=== PATIENT | female | born 1960 | race African-American/Black ===

== ENCOUNTER 2017-02-09 16:48 | Emergency (ER) | payer OTHER ==
[~2017-02-09] VITALS: Ht 170.2 cm; Wt 95.7 kg
[~2017-02-09 16:48] MED LIST: ADVAIR 250-501 EACH INH; ALBUTEROL2.5 MG/3 M INH/SOL; MEDROL4 M2 PO; PROAIR HFA8.5 GM INH; XYZAL5 M1 PO
[2017-02-09 17:49] LABS: ABSOLUTE BASOPHIL COUNT 0 /CUMM (0.0-0.2); ABSOLUTE EOSINOPHIL COUNT 0.1 /CUMM (0.0-0.7); ABSOLUTE GRANULOCYTE CT 2.4 /CUMM (1.4-6.5); ABSOLUTE LYMPH COUNT 3.1 /CUMM (1.2-3.4); ABSOLUTE MONOCYTE COUNT 0.5 /CUMM (0.10-0.60); BASOPHIL % 0.6 % (0.0-2.0); EOSINOPHIL % 1.4 % (0-5); GRANULOCYTE % 39.6 % (42.2-75.2); HEMATOCRIT 39.2 % (37-47); MEAN CORPUSCULAR HGB 29.5 PG (27.0-31.0); MEAN CORPUSCULAR HGB CONC 33.6 G/DL (33.0-37.0); MEAN CORPUSCULAR VOLUME 87.8 FL (81.0-99.0); MEAN PLATELET VOLUME 9.5 FL (7.4-10.4); PLATELET COUNT 210 /CUMM (130-400); RBC DISTRIBUTION WIDTH 13.8 % (11.5-14.5); RED BLOOD CELL CT 4.47 /CUMM (4.20-5.40)
--- NOTE | 2017-02-09 18:49 | ED GENERAL ADULT ---
History of Present Illness General Chief Complaint: General Adult Stated Complaint: BP HIGH Source: patient Exam Limitations: no limitations Vital Signs & Intake/Output Vital Signs & Intake/Output Vital Signs Date Time Temp Pulse Resp B/P B/P Pulse O2 O2 Flow FiO2 Mean Ox Delivery Rate 02/09 2022 Room Air 02/09 1917 70 120/82 02/09 1655 97.9 64 15 169/100 98 Room Air Room Air Allergies Coded Allergies: Sulfa (Sulfonamide Antibiotics) (Severe, ANAPHYLAXIS 02/09/17) latex (HIVES 02/09/17) oxytocin (From PITOCIN) (ALLERGY TESTED POSITIVE 02/09/17) Reconcile Medications Azelastine/Fluticasone (Dymista Nasal [place]) 137 MCG-50 MCG/SPRAY SPRAY.PUMP 1 SPRAY NASB BID ALLERGIES (Reported) Chlorthalidone 25 MG TABLET 1 TAB PO DAILY BP (Reported) Fluticasone/Vilanterol (Breo Ellipta 100-25 Mcg INH) (Unknown Strength) BLST.W.DEV (Unknown Dose) INH BID ASTHMA (Reported) Levocetirizine Dihydrochloride 5 MG TABLET 1 TAB PO QPM ALLERGIES (Reported) Lorcaserin HCl (Belviq) (Unknown Strength) TABLET (Unknown Dose) UNKNOWN ( Reported) Pantoprazole Sodium 40 MG TABLET.DR 1 TAB PO DAILY GI (Reported) Sumatriptan Succinate (Imitrex) 50 MG TABLET 1 TAB PO AD PRN MIGRAINE DO NOT TAKE MORE THAN TWO TABLETS IN 24 HOURS Triage Note: PT TO ED FOR C/C OF HIGH BLOOD PRESSURE. PT TOOK PRESSURE AT [facility] WHICH SHE STATES WAS "180/125". PT REPORTS FEELING WEAK AND "LIKE I'M GOING TO PASS OUT." PT'S BP INTRIAGE 169/100. PT REPORTS "THE RIGHT SIDE OF MY HEAD JUST DOESN'T FEEL RIGHT FOR LAST TWO OR THREE HOURS." DENIES CP, SOB, CHANGE IN VISION. Triage Nurses Notes Reviewed? 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 Headache that began today Patient went to her pharmacy and had a blood pressure cuff reading of 200/125 in which patient was strongly advised to present to emergency room. Patient denies any fever chills blurred vision neck pain chest pain shortness of breath cough nausea vomiting paresthesia Patient states that she does have a history of migraines denies any acute onset or thunderclap headache or worst headache of life. (KETTY DIMAS) Past History Travel History Traveled to [place] past 21 day No Medical History Any Pertinent Medical History? 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 No (KETTY DIMAS) Review of Systems Review of Systems Constitutional: Reports: see HPI, malaise, weakness. EENTM: Reports: no symptoms. Respiratory: Reports: no symptoms. Cardiovascular: Reports: no symptoms. GI: Reports: no symptoms. Genitourinary: Reports: no symptoms. Musculoskeletal: Reports: no symptoms. Skin: Reports: no symptoms. Neurological/Psychological: Reports: see HPI, headache. Hematologic/Endocrine: Reports: no symptoms. Immunologic/Allergic: Reports: no symptoms. All Other Systems: Reviewed and Negative (KETTY DIMAS) Physical Exam Physical Exam General Appearance: no apparent distress, alert, comfortable Comments: Well-developed well-nourished person in no acute distress HEENT: Normal EENT exam, extraocular motion intact, no nystagmus. Pupils equally round and reactive to light and accommodation. Nose is atraumatic. External auditory canal and Tympanic membranes clear. Pharynx normal. No swelling or edema. Neck: Supple, no lymphadenopathy, normal range of motion without pain or tenderness Back: Nontender, no CVA tenderness Cardiovascular: Regular rate and rhythms no murmurs rubs or gallops, normal JVP Respiratory: Chest nontender. No respiratory distress.breath sounds clear to auscultation bilaterally Abdomen: Soft, nontender nondistended, no appreciable organomegaly. Normal bowel sounds. No ascites Extremity: No edema, no calf tenderness to palpation, normal and equal pulses. Neuro: Alert oriented x3, motor sensory normal, cranial nerves II through XII grossly intact. Skin: No appreciable rash on exposed skin, skin is warm and dry. Psych: Mood and affect is normal, memory and judgment is normal. Core Measures ACS in differential dx? No CVA/TIA Diagnosis: No Severe Sepsis Present: No Septic Shock Present: No (JENNIFER PETER,KETTY) Progress Differential Diagnoses I considered the following diagnoses in my evaluation of the patient: [ Hypertensive emergency, hypertension, hypertensive urgency, CVA, TIA, subarachnoid hemorrhage, myocardial infarction, end organ failure,] Plan of Care: Orders Procedure Date/time Status Add-on Test (ER Only) 02/09 185 Active THYROID STIMULATING HORMONE 02/09 171 Complete FREE T4 02/09 171 Complete TROPONIN LEVEL 02/09 165 Complete COMPREHENSIVE METABOLIC PANEL 02/09 165 Complete CBC WITHOUT DIFFERENTIAL 02/09 1658 Complete EKG 02/09 1658 Active Laboratory Tests 02/09/17 1715: Anion Gap 11, Estimated GFR > 60, BUN/Creatinine Ratio 18.8, Glucose 85, Calcium 9.1, Total Bilirubin 0.5, AST 74 H, ALT 61 H, Alkaline Phosphatase 102, Troponin I < 0.01, Total Protein 8.3 H, Albumin 4.8, Globulin 3.5, Albumin/ Globulin Ratio 1.4, TSH 0.041 L, Free T4 1.43, CBC w Diff NO MAN DIFF REQ, RBC 4.47, MCV 87.8, MCH 29.5, RDW 13.8, MPV 9.5, Gran % 39.6 L, Lymphocytes % 50.9, Monocytes % 7.5, Eosinophils % 1.4, Basophils % 0.6, Absolute Granulocytes 2.4, Absolute Lymphocytes 3.1, Absolute Monocytes 0.5, Absolute Eosinophils 0.1, Absolute Basophils 0, PUBS MCHC 33.6 Patient currently is in no apparent distress resting comfortably at bedside. EKG was unremarkable Blood work was noted to be normotensive with manual exam Patient does state that she has a history of migraines which has improved with Imitrex in the past. After medications were administered patient had relief of headache. Patient had unremarkable blood work patient was given copies of blood work for follow-up. (KETTY DIMAS) Initial ED EKG: normal intervals, normal p-waves, normal QRS complex, 55 BPM, LVH (KETTY DIMAS) Departure Departure Disposition: HOME OR SELF CARE Condition: Stable Clinical Impression Primary Impression: Hypertension Secondary Impressions: Headache, Malaise Referrals: SHOLA MCCANN,HUMAIRA Leyva (PCP/Family) Additional Instructions: As discussed continue home medications as directed Follow-up with your primary care doctor this week if no better. Begin the prescription of Imitrex for headaches. If symptoms worsen return to emergency room. Departure Forms: Customer Survey General Discharge Information Prescriptions: Current Visit Scripts Sumatriptan Succinate (Imitrex) 1 TAB PO AD PRN MIGRAINE #9 TAB DO NOT TAKE MORE THAN TWO TABLETS IN 24 HOURS (KETTY DIMSA) PA/CAR MECHANIC Co-Sign Statement Statement: ED Attending supervision documentation- [] I saw and evaluated the patient. I have also reviewed all the pertinent lab results and diagnostic results. I agree with the findings and the plan of care as documented in the PA's/CAR MECHANIC's documentation. [X] I have reviewed the ED Record and agree with the PA's/CAR MECHANIC's documentation. [] Additions or exceptions (if any) to the PAs/CAR MECHANIC's note and plan are summarized below: [] (LESLI MCCANN,SAMUEL Day) Critical Care Note Critical Care Note Critical Care Time: non-applicable (KETTY DIMAS)
[2017-02-09 19:17] VITALS: BP 120/82
[2017-02-09] MEDS ORDERED: IMITREX50 M1 PO (19:46)
[2017-02-09] MEDS ORDERED: DYMISTA NASAL S23 GM NASB (19:56)
[2017-02-09] MEDS ORDERED: BREO ELLIPTA 11 EACH INH (19:56)
[2017-02-09] MEDS ORDERED: CHLORTHALIDONE25 M1 PO (19:56)
[2017-02-09] MEDS ORDERED: PANTOPRAZOLE SO40 M1 PO (19:57)
[2017-02-09] MEDS ORDERED: BELVIQ10 M1 (19:57)
[2017-02-09] MEDS ORDERED: LEVOCETIRIZINE D5 M1 PO (19:57)
== END 2017-02-09 20:23 ==
LOC: ERH 16:48
PROVIDERS: Emergency Medicine
DX: I10 Essential (primary) hypertension (principal); R51 Headache; R53.81 Other malaise
CPT/HCPCS: 93005; 93010

== ENCOUNTER 2018-02-23 00:49 | Inpatient (IN) | payer OTHER ==
[~2018-02-23] VITALS: Ht 171.4 cm; Wt 97.5 kg
[~2018-02-23 00:49] MED LIST changes: +BELVIQ10 M1; +BREO ELLIPTA 11 EACH INH; +CHLORTHALIDONE25 M1 PO; +CYCLOBENZAPRINE10 M1 PO; +DYMISTA NASAL S23 GM NASB; +IBUPROFEN600 M1 PO; +IMITREX50 M1 PO; +LEVOCETIRIZINE D5 M1 PO; +NORCO 5-325 TA1 EACH PO; +PANTOPRAZOLE SO40 M1 PO
[2018-02-23] MEDS ORDERED: ZIPSOR25 M1 PO (08:49)
--- NOTE | 2018-02-23 12:32 | Operative Report ---
Operative/Inv Procedure Report Surgery Date: 02/23/18 Name of Procedure: Left total knee arthroplasty Pre-Operative Diagnosis: Left knee osteoarthritis Post-Operative Diagnosis: Same Estimated Blood Loss: scant Surgeon/Vascular Tech: Ramin MCCANN,Ash Garcia Anesthesia: block Implants: Jason triathlon total knee system-size 4 femur, size 4 tibia, 9 mm cruciate retaining polyethylene, 31 patella Drains: None Specimens: Femoral, tibial, patellar bone remnants of medial and lateral meniscal tissues Microbiology: Urine Tourniquet: 53 minutes Complications: None Condition: Stable Operative Indication: Patient is a 57-year-old woman who injured her back and left leg/knee who was treated for these injuries with conservative measures. Unfortunately, she had ongoing left knee symptoms that warranted further workup. She was found to have end-stage osteoarthritis of the lateral compartment and patellofemoral compartment. Due to poor response to conservative measures, patient wished to proceed with total knee arthroplasty. Risks, benefits and expectations of the surgical procedure were discussed which included but were not limited to persistent knee pain, need for subsequent surgery, infection, DVT, injury to blood vessel or nerve, anesthesia risks. Patient wished to proceed with the total knee arthroplasty after discussion Operative/Procedure Note Note: Patient was brought to the operating room and transferred to the operating room table. Once under appropriate anesthesia the left lower extremity was prepped and draped in standard fashion. Preoperative IV antibiotics were given prophylactically. Standard anterior incision was made after the leg was elevated exsanguinated and tourniquet was inflated to 300 ohms of pressure. Incision was taken down sharply to the underlying retinaculum. A medial retinacular approach was used to enter the knee joint. Of note the retinacular layer was very thin below the level of the patella. Large osteophytes were evaluated and seen in the patellofemoral compartment as well as the lateral joint and intercondylar notch. These osteophytes were excised. Remnants of the anterior horns of the medial lateral meniscal tissues were excised. A portion of the fat pad was excised. Retractors were placed. I then used the drill to enter the intramedullary canal for the intramedullary guide for the distal femoral cut. This cut was made at 5. Soft tissues were protected throughout the procedure during all clots. The femur was then sized to a size 4. Patient had a very large trochlear ridge. Cuts were made with the size 4 cutting block. I was satisfied with the preparation of the femur. I then used the external tibial alignment guide to pin the cutting block in a neutral position from medial to lateral and reproducing patient's posterior slope based on preoperative templating and intraoperative findings. Once this cut was made I sized the tibia to a size 4. I did a trial reduction with a size 4 tibia size 4 femur and a trial polyethylene. Full extension of the knee. Excellent balance knee in mid flexion and full flexion to gravity. I then evaluated the patella. There was severe eburnated bone along the patellofemoral compartment and specifically ridging of the patella consistent with eburnated bone and chronic maltracking. The patella was measured and the appropriate thickness was removed and resurfaced with a 31 patella. Excellent patellofemoral tracking at that point. No need for lateral release. I marked my rotation of the tibia and drilled my 3 lug holes for the femur. All trial components were then removed. I then finished preparation of the tibia with the appropriate sized tibial punch. Copious irrigation the knee surfaces followed as the cement was being mixed on the back table. Once the cement was ready was applied to the dry clean bony surfaces of the tibia. The size 4 tibial component was impacted in place and excess cement was removed with curette. Cement was applied to dry clean bony surfaces of the distal femur and the size 4 femoral component was impacted in place and excess cement was removed with curette. A 9 mm insert was applied as a trial insert and the knee was taken out to full extension. Cement was applied to the dry clean bony surface of the patella. The size 31 patella was impacted in place and excess cement was removed with a knife. During the cement hardening process I did appear articular pericapsular injection of a cocktail which include ropivacaine with epinephrine and Toradol for postoperative pain and inflammation management. Once the cement hardened into the knee through range of motion. Small pieces of excess cement were removed with osteotome. I removed the trial polyethylene and copiously irrigated the tibial tray. I made sure there was no remaining soft tissue, bone fragments or cement fragments within the tibial tray and then I impacted the definitive size 9 mm cruciate retaining polyethylene component. The locking mechanism was confirmed. Irrigation of the knee followed. Tourniquet was deflated at 53 minutes. Excellent patellofemoral tracking full extension no evidence of instability in mid flexion. Full flexion to gravity. After copious irrigation was completed I start the closed with interrupted #1 Vicryl sutures in the retinacular layer and the minimal extension to the quadricep. Subcutaneous tissue was closed in 2 layers with 2-0 Vicryl and skin was closed with a running 3-0 Vicryl suture with the knee in flexion. Every level of closure was followed by copious irrigation. Appropriate dressings were applied and patient was taken to the recovery room in good condition. No intraoperative complications. Discharge Disposition: PACU
--- NOTE | 2018-02-23 14:22 | Admission Core Measures ---
Acute Coronary Syndrome (CM) ACS Core Measures Acute Coronary Syndrome Diagnosis No Congestive Heart Failure (NEW) CHF Core Measures Congestive Heart Failure Diagnosis No Cerebrovascular Accident (NEW) CVA Core Measures CVA/TIA Diagnosis No Venous Thromboembolism VTE Core Ozzy (View Protocol) VTE Risk Factors Surgery No Mechanical VTE Prophylaxis d/t N/A MechProphylax Ordered No VTE Pharm Prophylaxis d/t NA PharmProphylax ordered Problem List As ranked by this Provider includes Assessment & Plan 1. Unilateral primary osteoarthritis, left knee HOME MEDS Home Med List Azelastine/Fluticasone (Dymista Nasal [place]) 137 MCG-50 MCG/SPRAY SPRAY.PUMP 1 SPRAY NASB BID ALLERGIES (Reported) Chlorthalidone 25 MG TABLET 1 TAB PO DAILY BP (Reported) Diclofenac Potassium (Zipsor) 25 MG CAPSULE 1 TAB PO DAILY PRN muscle relaxer (Reported) Fluticasone/Vilanterol (Breo Ellipta 100-25 Mcg INH) (Unknown Strength) BLST.W.DEV (Unknown Dose) INH BID ASTHMA (Reported) Ibuprofen 600 MG TABLET 1 TAB PO Q6 PRN PAIN Levocetirizine Dihydrochloride 5 MG TABLET 1 TAB PO QPM ALLERGIES (Reported) Pantoprazole Sodium 40 MG TABLET.DR 1 TAB PO DAILY GI (Reported) Sumatriptan Succinate (Imitrex) 50 MG TABLET 1 TAB PO AD PRN MIGRAINE
--- NOTE | 2018-02-23 14:26 | Patient Discharge Instructions ---
Discharge Instructions General Discharge Information You were seen/treated for: Left knee pain related to unilateral primary osteoarthritis You had these procedures: Left total knee replacement Watch for these problems: Increasing pain despite the use of pain medication Increasing redness, warmth or swelling Drainage of any type from incision Inability to bear weight on operative leg Persistent nausea and vomiting Fever greater than 101.5 degrees Do not soak the wound: Yes No bath, but you may shower: Yes Other wound care: Please keep wound clean and dry. No ointments or lotions of any type on or near incision at any time. No exceptions. Your dressing will be changed by your nurse on the second day after your surgery. Daily dry dressing changes are recommended each day thereafter. Do not soak your wound in a bath at any time until otherwise indicated by your surgeon. You may shower, please dry wound immediately after shower with a clean towel. Diet Continue normal diet: Yes Recommended Diet: Regular Activity Full Activity/No Limits: No Activity Self Limited: Yes Pounds, do NOT lift more than: 10 Acute Coronary Syndrome Inclusion Criteria At DC or during hospital stay patient has or had the following: ACS DIAGNOSIS No Discharge Core Measures Meds if any: Prescribed or Continued at Discharge Meds if any: NOT Prescribed or Continued at Discharge Congestive Heart Failure Inclusion Criteria At DC or during hospital stay patient has or had the following: CHF DIAGNOSIS No Discharge Core Measures Meds if any: Prescribed or Continued at Discharge Meds if any: NOT Prescribed or Continued at Discharge Cerebrovascular accident Inclusion Criteria At DC or during hospital stay patient has or had the following: CVA/TIA Diagnosis No Discharge Core Measures Meds if any: Prescribed or Continued at Discharge Meds if any: NOT Prescribed or Continued at Discharge Venous thromboembolism Inclusion Criteria VTE Diagnosis No VTE Type NONE VTE Confirmed by (Test) NONE Discharge Core Measures - Per Current guidelines, there needs to be overlap - treatment for the first 5 days of Warfarin therapy. - If discharged on Warfarin prior to 5 days of - overlap therapy, the patient will need to be - assessed for post discharge needs including - *Post discharge parental anticoagulation - *Warfarin and/or parental anticoagulation education - *Follow up date to check INR post discharge At least 5 days overlap therapy as Inpatient No Meds if any: Prescribed or Continued at Discharge Note: Overlap Therapy is Warfarin and Anticoagulant Meds if any: NOT Prescribed or Continued at Discharge
--- NOTE | 2018-02-23 14:28 | Surgical Discharge Summary ---
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 Lithuanian Review of Systems: See H&P Hospital Course Course Attending Physician: Ramin MCCANN,Jose Primary Care Physician: Danitza Mahoney MD Hospital Course: Patient was admitted to the hospital for an elective total joint replacement. The procedure was tolerated well and patient was transferred to a general surgical floor. Diet was advanced and tolerated. The patient was evaluated and treated by physical therapy. At the time of hospital discharge, the vital signs were stable, neurovascular status was intact, and pain was controlled with the use of oral pain medications. Allergies: Coded Allergies: perfume (Severe, anaphylaxis 02/23/18) Sulfa (Sulfonamide Antibiotics) (Intermediate, rash 02/23/18) latex (HIVES 02/12/18) oxytocin (From PITOCIN) (ALLERGY TESTED POSITIVE 02/12/18) Significant Procedures: left total knee arthroplasty Disposition Summary Disposition Principal Diagnosis: Left knee unilateral primary osteoarthritis Additional Diagnosis: None Discharge Disposition: SNF Discharge Instructions General Discharge Information Code Status: Full Code Patient's Diet: Regular, advance as tolerated Patient's Activity: WBAT Follow-Up Instructions/Appts: Follow up with Dr. Faustin in 2 weeks from date of surgery. Please call office to arrange/confirm this appointment. Medications at Discharge Discharge Medications: Continue taking these medications: Sumatriptan Succinate (Imitrex) 50 MG TABLET 1 Tablet ORAL As Directed as needed for MIGRAINE Qty = 9 Instructions: DO NOT TAKE MORE THAN TWO TABLETS IN 24 HOURS Chlorthalidone (Chlorthalidone) 25 MG TABLET 1 Tablet ORAL DAILY Qty = 30 Fluticasone/Vilanterol (Breo Ellipta 100-25 Mcg INH) (Unknown Strength) BLST.W.DEV Unknown Dose Inhale through mouth TWICE DAILY Azelastine/Fluticasone (Dymista Nasal [place]) 137 MCG-50 MCG/SPRAY SPRAY.PUMP 1 [place] Both sides of nose TWICE DAILY Levocetirizine Dihydrochloride (Levocetirizine Dihydrochloride) 5 MG TABLET 1 Tablet ORAL Every night Qty = 30 Pantoprazole Sodium (Pantoprazole Sodium) 40 MG TABLET.DR 1 Tablet ORAL DAILY Qty = 30 Start taking the following new medications: Hydromorphone HCl (Hydromorphone HCl) 2 MG TABLET 1-2 Tablet ORAL EVERY 3 HOURS NEEDED as needed for PAIN SCALE 4-6 ( MODERATE) Qty = 30 No Refills Docusate Sodium (Docusate Sodium) 100 MG CAPSULE 1 Tablet ORAL TWICE DAILY as needed for CONSTIPATION Qty = 30 No Refills Polyethylene Glycol 3350 (Miralax) 17 GRAM/DOSE POWDER 1 Tablet ORAL DAILY NEEDED as needed for NO BM IN TWO DAYS Qty = 30 No Refills Methocarbamol (Robaxin) 500 MG TABLET 1 Tablet ORAL THREE TIMES A DAY NEEDED as needed for SPASMS Qty = 30 No Refills Apixaban (Eliquis) 2.5 MG TABLET 1 Tablet ORAL TWICE DAILY Qty = 30 No Refills
--- NOTE | 2018-02-23 15:08 | PN- Orthopedic ---
Subjective Subjective: Awake and alert in pacu complaining of feeling short of breath due to severe sensitivities surrounding smells and recent exposure to perfume in the PACU. Her resp rate is 18 with O2 sat of 99% on 2LNC, no audible wheezing Objective Vital Signs and I&Os VSS< afebrile General: appears distressed due to perfume exposure and feels short of breath although RR 16 with O2 sat of 99% on 2LNC BP 124/63, HR 78 reg Chest: clear anteriorly bilaterally, RRR Abd: soft, good bs Ext: warm, no edema, normosensate, good 5/5 ANASTACIO BLE wd: dressed, dry, ice pack in place Assessment/Plan Assessment/Plan 57yo female s/p L TKR pain management with ccelebrex daily while in hospital/narcotics as needed PT - WBAT dvt ppx with eliquis/alps pt is undergoing a breathing treatment now and is more calm. O2 sat continues to be 99%- will ordere TRC, Reviewed home meds with pharmacy and restarted all respiratory/asthma/allergy meds with formulary conversions Core Measures Venous Thromboembolism VTE Risk Factors Surgery No Mechanical VTE Prophylaxis d/t N/A MechProphylax Ordered No VTE Pharm Prophylaxis d/t NA PharmProphylax ordered
[2018-02-23 15:47] VITALS: BP 131/91
[2018-02-23 18:09] VITALS: BP 145/85
[2018-02-23 20:00] VITALS: BP 112/73
[2018-02-23 20:15] VITALS: BP 112/73
[2018-02-23 22:00] VITALS: BP 120/77
[2018-02-24 01:43] VITALS: BP 117/60
[2018-02-24 06:19] VITALS: BP 110/60
[2018-02-24 08:30] LABS: ABSOLUTE BASOPHIL COUNT 0 /CUMM (0.0-0.2); ABSOLUTE EOSINOPHIL COUNT 0 /CUMM (0.0-0.7); ABSOLUTE LYMPH COUNT 1.7 /CUMM (1.2-3.4); ABSOLUTE MONOCYTE COUNT 0.9 /CUMM (0.10-0.60); BASOPHIL % 0.1 % (0.0-2.0); EOSINOPHIL % 0.1 % (0-5); HEMATOCRIT 28.7 % (37-47); MEAN CORPUSCULAR HGB 30.4 PG (27.0-31.0); MEAN CORPUSCULAR HGB CONC 34.2 G/DL (33.0-37.0); MEAN CORPUSCULAR VOLUME 88.8 FL (81.0-99.0); PLATELET COUNT 191 /CUMM (130-400); RBC DISTRIBUTION WIDTH 14.3 % (11.5-14.5); RED BLOOD CELL CT 3.23 /CUMM (4.20-5.40); WHITE BLOOD CELL COUNT 10.6 /CUMM (4.8-10.8)
[2018-02-24 08:40] LABS: GRANULOCYTE % 75.3 % (42.2-75.2)
[2018-02-24 10:35] VITALS: BP 120/68
--- NOTE | 2018-02-24 11:41 | PN- Orthopedic ---
See Addendum Subjective Subjective: No acute overnight events. Denies chest pain, no asthma related shortness of breath overnight. Denies nausea and vomitting. Has alicea catheter. Anticipates dc to str in 2 nights. Objective Vital Signs and I&Os Vital Signs Date Time Temp Pulse Resp B/P B/P Pulse O2 O2 Flow FiO2 Mean Ox Delivery Rate 02/24 1035 95.7 67 22 120/68 97 Room Air / 0906 Room Air Room Air 02/24 0619 98.4 60 22 110/60 95 Room Air 06/05 0143 98.0 62 22 117/60 98 Room Air / 2200 98.3 66 20 120/77 95 /04 2105 Room Air /2014 98.4 65 20 112/73 97 / 2000 98.4 65 20 112/73 97 Room Air / 1809 98.3 75 20 145/85 95 /04 1547 97.7 64 20 131/91 97 Room Air Intake & Output 02/24 1600 02/24 0800 / 0000 /04 1600 / 0800 / 0000 Intake Total 360 840 Output Total 600 925 Balance 360 -600 -85 Intake, IV 600 Intake, Oral 360 240 Output, Urine 600 925 Patient 215 lb Weight Weight Reported by Patient Measurement Method Physical Exam: General: Alert and oriented x3, no acute distress Cardiac: RRR, s1s2 Pulm: Non-labored respiratory effort, no wheezing, cta bilaterally Abd: Non-tender, non-distended Extremities: Moves all extremities, distal sensation inact. Skin warm and well perfused. Bilateral calves soft and non-tender. Dressing dry and intact. Assessment/Plan Assessment/Plan 57 year old female, pod 1, s/p L TKR -DC alicea -DC iv fluids oob, pt wbat eliquis for dvt ppx dc celebrex due to sulfa allergy will discuss with Dr. Faustin Core Measures Venous Thromboembolism VTE Risk Factors Surgery No Mechanical VTE Prophylaxis d/t N/A MechProphylax Ordered No VTE Pharm Prophylaxis d/t NA PharmProphylax ordered
[2018-02-24 13:42] VITALS: BP 107/65
[2018-02-24 18:00] VITALS: BP 120/68
[2018-02-24 22:00] VITALS: BP 124/70
[2018-02-25 05:45] VITALS: BP 114/64
--- NOTE | 2018-02-25 07:27 | PN- Orthopedic ---
Subjective Subjective: Co a lot of pain, worse overnight. improved with meds. better this am. no other complaints, no fever, no cp, no sob. Objective Vital Signs and I&Os Vital Signs Date Time Temp Pulse Resp B/P B/P Pulse O2 O2 Flow FiO2 Mean Ox Delivery Rate 02/25 0545 98.3 78 24 114/64 98 Room Air / 2200 98.3 74 20 124/70 93 Room Air / 1800 98.1 74 20 120/68 94 Room Air / 1628 Room Air Room Air / 1342 97.9 59 20 107/65 97 Room Air / 1035 95.7 67 22 120/68 97 Room Air / 0906 Room Air Room Air 02/24 0800 Room Air Intake & Output 02/25 0800 / 0000 02/24 1600 02/24 0800 / 0000 /04 1600 Intake Total 100 300 840 840 840 Output Total 400 400 600 925 Balance -300 300 440 240 -85 Intake, IV 50 600 600 Intake, Oral 100 250 840 240 240 Output, Urine 400 400 600 925 Patient 215 lb Weight Weight Reported by Patient Measurement Method Physical Exam: wdwn aox3, nad, appears comfortable. heent-wnl no respiratory distress. LLE- dressing changed, mild bloody drainage noted inferior aspect of incision. scant amount of fresh blood noted in the area, steri strips have fallen off inferior incision. dsd applied. nvi distally, no calf pain. rom 0-45. Results Last 48 Hours of Labs: Laboratory Tests 02/24 0720 Chemistry Sodium (137 - 145 mmol/L) 140 Potassium (3.5 - 5.1 mmol/L) 3.9 Chloride (98 - 107 mmol/L) 102 Carbon Dioxide (22 - 30 mmol/L) 29 Anion Gap (5 - 16) 10 BUN (7 - 17 mg/dL) 21 H Creatinine (0.5 - 1.0 mg/dL) 0.8 Estimated GFR (>60 ml/min) > 60 BUN/Creatinine Ratio (7 - 25 %) 26.3 H Hematology CBC w Diff NO MAN DIFF REQ WBC (4.8 - 10.8 /CUMM) 10.6 RBC (4.20 - 5.40 /CUMM) 3.23 L Hgb (12.0 - 16.0 G/DL) 9.8 L Hct (37 - 47 %) 28.7 L MCV (81.0 - 99.0 FL) 88.8 MCH (27.0 - 31.0 PG) 30.4 MCHC (33.0 - 37.0 G/DL) 34.2 RDW (11.5 - 14.5 %) 14.3 Plt Count (130 - 400 /CUMM) 191 MPV (7.4 - 10.4 FL) 9.0 Gran % (42.2 - 75.2 %) 75.3 H Lymphocytes % (20.5 - 51.1 %) 16.2 L Monocytes % (1.7 - 9.3 %) 8.3 Eosinophils % (0 - 5 %) 0.1 Basophils % (0.0 - 2.0 %) 0.1 Absolute Granulocytes (1.4 - 6.5 /CUMM) 8.0 H Absolute Lymphocytes (1.2 - 3.4 /CUMM) 1.7 Absolute Monocytes (0.10 - 0.60 /CUMM) 0.9 H Absolute Eosinophils (0.0 - 0.7 /CUMM) 0 Absolute Basophils (0.0 - 0.2 /CUMM) 0 Assessment/Plan Assessment/Plan pod2 sp L TKA orthopedically stable. monitor wound bleeding cont eliquis dsd daily, done today cira pavon PT, wbat titrate pain meds, breakthrough toradol, robaxin for spasm dispo: pt request transfer to [facility], will dw case managment. plan for dc tomorrow. Core Measures Venous Thromboembolism VTE Risk Factors Surgery No Mechanical VTE Prophylaxis d/t N/A MechProphylax Ordered No VTE Pharm Prophylaxis d/t NA PharmProphylax ordered
--- NOTE | 2018-02-25 15:35 | RADIOLOGY REPORT ---
EXAMINATION: XR KNEE, LEFT CLINICAL INFORMATION: Status post left TKA. COMPARISON: Preoperative x-ray 04/06/2017. TECHNIQUE: AP and lateral views of the left knee were obtained.. FINDINGS: There are sequelae of a left total knee arthroplasty. The hardware appears in anatomic position end intact. No fractures are demonstrated. There are postoperative changes in the periarticular soft tissues. IMPRESSION: 1. Status post left total knee arthroplasty.
[2018-02-25 16:33] VITALS: BP 120/70
[2018-02-25 21:26] VITALS: BP 123/70
[2018-02-26 06:34] VITALS: BP 126/72
--- NOTE | 2018-02-26 10:48 | PN- Orthopedic ---
Subjective Subjective: POD#3 S/P LEFT TKA LEFT KNEE PAIN CONTROL ISSUES STATES ON TORADOL WORKS FOR HER PAIN DENIES CP, SOB, NO N+V WITH DIET HAS BEEN OOB WITH PT AND CLEARED FOR HOME D/C Objective Vital Signs and I&Os Vital Signs Date Time Temp Pulse Resp B/P B/P Pulse O2 O2 Flow FiO2 Mean Ox Delivery Rate 02/26 0634 98.1 84 18 126/72 100 Room Air 02/25 2126 98.8 87 20 123/70 99 /06 1633 98.7 83 20 120/70 97 Intake & Output / 1600 02/26 0800 02/26 0000 02/25 1600 02/25 0800 02/25 0000 Intake Total 0 480 360 100 300 Output Total 400 Balance 0 480 360 -300 300 Intake, IV 50 Intake, Oral 0 480 360 100 250 Number 0 1 Bowel Movements Output, Urine 400 Physical Exam: CV: RRR LUNGS: CLEAR ABD: SOFT, +BS EXT: CALVES SOFT, DISTAL CMS INTACT BILAT WOUND C/D/I Assessment/Plan Assessment/Plan ORTHO STABLE PLAN TITRATE PAIN MEDS CONT OOB WITH PT CASE MANAGEMENT TO SEE FOR HOME NEEDS Core Measures Venous Thromboembolism VTE Risk Factors Surgery No Mechanical VTE Prophylaxis d/t N/A MechProphylax Ordered No VTE Pharm Prophylaxis d/t NA PharmProphylax ordered
[2018-02-26] MEDS ORDERED: HYDROMORPHONE HC2 M1 PO (11:59)
[2018-02-26] MEDS ORDERED: DOCUSATE SODIU100 M3 PO (11:59)
[2018-02-26] MEDS ORDERED: MIRALAX119 GM PO (11:59)
[2018-02-26] MEDS ORDERED: ELIQUIS2.5 M1 PO (12:01)
[2018-02-26] MEDS ORDERED: ROBAXIN500 M1 PO (12:01)
[2018-02-26 12:24] VITALS: BP 126/72
== END 2018-02-26 13:15 | DRG 470 ==
LOC: STS 00:49 → EDSTATUS 07:00 → PACUH 12:54 → 2NA 13:12 → ENRESERV 13:57 → ENTRNSPT 14:33 → EDTRNSPT 14:47 → EDTRNSPTSTS 14:47 → EDTRNSPT 15:07 → 2NA 15:13 → CMPTRNSPT 15:31 → 2NA 02-24 08:36 → ENPENDDIS 02-26 12:20 → 2NA 02-26 13:15
PROVIDERS: Physician Assistant Surgical
PROC: 0SRD0J9 Replacement of Left Knee Joint with Synthetic Substitute, Cemented, Open Approach (ICD-10-PCS; principal; 2018-02-23)
PROC: 3E0T3BZ Introduction of Anesthetic Agent into Peripheral Nerves and Plexi, Percutaneous Approach (ICD-10-PCS; 2018-02-23)
DX: M17.12 Unilateral primary osteoarthritis, left knee (principal); J45.909 Unspecified asthma, uncomplicated; I10 Essential (primary) hypertension; F51.01 Primary insomnia; Z91.040 Latex allergy status; Z88.2 Allergy status to sulfonamides; Z91.048 Other nonmedicinal substance allergy status; Z88.8 Allergy status to other drugs, medicaments and biological substances
CPT/HCPCS: 2NAP; 6030; 36415; 36592; 73560-LT; 82436; 87086; 88305; 97110-GO; 97116-GO; 97116-GP; 97161-GP; 97530-GO; 97530-GP; C1713; C9290; G0378; J0171; J1100; J1885; J2405; J2795; J3370; J3490; J7040

== ENCOUNTER 2018-02-26 22:49 | Observation (INO) | payer OTHER ==
[~2018-02-26] VITALS: Ht 170.2 cm; Wt 103.5 kg
[~2018-02-26 22:49] MED LIST changes: +DOCUSATE SODIU100 M3 PO; +ELIQUIS2.5 M1 PO; +HYDROMORPHONE HC2 M1 PO; +MIRALAX119 GM PO; +ROBAXIN500 M1 PO; +ZIPSOR25 M1 PO
--- NOTE | 2018-02-26 23:09 | ED GENERAL ADULT ---
History of Present Illness General Chief Complaint: Lower Extremity Problems Stated Complaint: KNEE INFECTION Source: patient, old records Exam Limitations: no limitations Vital Signs & Intake/Output Vital Signs & Intake/Output Vital Signs Date Time Temp Pulse Resp B/P B/P Pulse O2 O2 Flow FiO2 Mean Ox Delivery Rate 02/27 0021 98.2 58 18 122/74 98 Room Air 02/26 2346 Room Air 02/26 2345 98.0 70 18 113/60 98 Room Air 02/26 2301 98.2 69 18 111/55 98 Room Air ED Intake and Output 02/27 0000 02/26 1200 Intake Total 100 Output Total Balance 100 Intake, IV 100 Allergies Coded Allergies: perfume (Severe, anaphylaxis 02/23/18) Sulfa (Sulfonamide Antibiotics) (Intermediate, rash 02/23/18) latex (HIVES 02/12/18) oxytocin (From PITOCIN) (ALLERGY TESTED POSITIVE 02/12/18) Reconcile Medications Apixaban (Eliquis) 2.5 MG TABLET 1 TAB PO BID BLOOD THINNER Azelastine/Fluticasone (Dymista Nasal [place]) 137 MCG-50 MCG/SPRAY SPRAY.PUMP 1 SPRAY NASB BID ALLERGIES (Reported) Chlorthalidone 25 MG TABLET 1 TAB PO DAILY BP (Reported) Docusate Sodium 100 MG CAPSULE 1 TAB PO BID PRN CONSTIPATION Fluticasone/Vilanterol (Breo Ellipta 100-25 Mcg INH) (Unknown Strength) BLST.W.DEV (Unknown Dose) INH BID ASTHMA (Reported) Hydromorphone HCl 2 MG TABLET 1-2 TAB PO Q3P PRN PAIN SCALE 4-6 (MODERATE) Levocetirizine Dihydrochloride 5 MG TABLET 1 TAB PO QPM ALLERGIES (Reported) Methocarbamol (Robaxin) 500 MG TABLET 1 TAB PO TIDPRN PRN SPASMS Pantoprazole Sodium 40 MG TABLET.DR 1 TAB PO DAILY GI (Reported) Polyethylene Glycol 3350 (Miralax) 17 GRAM/DOSE POWDER 1 TAB PO DAILY NEEDED PRN NO BM IN TWO DAYS Sumatriptan Succinate (Imitrex) 50 MG TABLET 1 TAB PO AD PRN MIGRAINE DO NOT TAKE MORE THAN TWO TABLETS IN 24 HOURS Triage Note: PT MARISA FROM [facility] FOR ADMISSION. PT HAD L KNEE REPLACEMENT DONE FRIDAY BY DR. SHERIFF. PT HAS BEEN IN [facility] FOR REHAB WHERE SHE HAS BEEN ABLE TO AMBULATE WITH WALKER. TODAY PT DEVELOPED REDNESS, SWELLING AND PAIN TO L KNEE. PT WENT TO [facility] AND WAS SENT BACK HERE TO [place]. PT C/O 07/01 PAIN. AFEBRILE. Triage Nurses Notes Reviewed? yes Onset: Morning Duration: hour(s):, constant, continues in ED Timing: recent history Severity: severe Modifying Factors: Improves With: immobilization, rest. Worsens With: movement. LMP (ages 10-50): post menopausal : No Patient currently breastfeeds: No HPI: Patient is status post left total knee replacement. ED admission she developed increased swelling redness low-grade temperature. She was seen at [facility] and referred for continuity of care with orthopedic surgery. She denies nausea vomiting diarrhea chest pain shortness breath headache dysuria bleeding. Past History Travel History Traveled to [facility] past 21 day No Medical History Any Pertinent Medical History? 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 No Review of Systems Review of Systems Constitutional: Reports: no symptoms. EENTM: Reports: no symptoms. Respiratory: Reports: no symptoms. Cardiovascular: Reports: no symptoms. GI: Reports: no symptoms. Genitourinary: Reports: no symptoms. Musculoskeletal: Reports: see HPI, joint pain, joint swelling. Skin: Reports: see HPI, rash. Neurological/Psychological: Reports: no symptoms. Hematologic/Endocrine: Reports: no symptoms. Immunologic/Allergic: Reports: no symptoms. All Other Systems: Reviewed and Negative Physical Exam Physical Exam General Appearance: well developed/nourished, alert, awake, anxious, moderate distress, obese Head: atraumatic, normal appearance Eyes: Bilateral: normal appearance, PERRL, EOMI. Ears, Nose, Throat: normal pharynx, normal ENT inspection, hearing grossly normal Neck: normal inspection, supple, full range of motion, no midline tenderness Respiratory: normal breath sounds, chest non-tender, no respiratory distress, quiet respiration, lungs clear Cardiovascular: regular rate/rhythm, normal peripheral pulses, norml femoral pulses equa Peripheral Pulses: 4+ carotid (R), 4+ carotid (L) Gastrointestinal: normal bowel sounds, soft, non-tender, no organomegaly Back: normal inspection, normal range of motion, no vertebral tenderness Extremities: normal capillary refill, limited range of motion, swelling, tenderness Neurologic/Psych: no motor/sensory deficits, awake, alert, oriented x 3, normal gait, normal mood/affect, 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 Skin: intact, rash, Erythema and warmth from left mid thigh to pretibial area Lymphatic: no anterior cervical rl Core Measures ACS in differential dx? No CVA/TIA Diagnosis: No Sepsis Present: No Sepsis Focused Exam Completed? No Progress Differential Diagnoses I considered the following diagnoses in my evaluation of the patient: Cellulitis postoperative complication Plan of Care: Orders Procedure Date/time Status Regular Diet 02/27 B Active C-REACTIVE PROTEIN 02/27 600 Active CBC WITHOUT DIFFERENTIAL 02/27 600 Active Pathway - chart 02/26 2349 Active Code Status 02/26 2349 Active Intake & Output 02/26 2314 Active Patient Data 02/[address] in observation 02/26 2253 Active TRC EVALUATION (GEN) 02/26 UNK Active Saline Lock 02/26 UNK Active Wound Care/Dressing 02/26 UNK Active VTE Mechanical Prophylaxis 02/26 UNK Active Vital Signs 02/26 UNK Active Activity/Ambulation 02/26 UNK Active Current Medications Sig/Mona Start time Last Medication Dose Stop Time Status Admin Apixaban 2.5 MG BID 02/27 900 AC (Eliquis) Budesonide/ 2 PUF BID 02/27 900 AC Formoterol Fumarate (SYMBICORT) Chlorthalidone 25 MG DAILY 02/27 900 AC (Hygroton) Omeprazole 40 MG DAILY AC 02/27 700 AC (Prilosec) Acetaminophen 650 MG Q6P PRN 02/26 2345 AC (Tylenol) Diphenhydramine HCl 25 MG Q4P PRN 02/26 2345 AC (Benadryl) Docusate Sodium 100 MG BID PRN 02/26 2345 AC (Colace) Hydromorphone HCl 2 MG Q3P PRN 02/26 2345 AC (Dilaudid) Hydromorphone HCl 2 MG Q3P PRN 02/26 2345 AC (Dilaudid) Methocarbamol 500 MG TIDPRN PRN 02/26 2345 AC (Robaxin) Morphine Sulfate 4 MG Q2P PRN 02/26 2345 AC (MORPHINE SULFATE) Ondansetron HCl 4 MG Q6P PRN 02/26 2345 AC (Zofran) Initial ED EKG: none Comments: Ortho defers use of antibioitics at this time. Departure Departure Time of Disposition: 2308 Disposition: STILL A PATIENT Condition: Stable Clinical Impression Primary Impression: Post-op pain Secondary Impressions: Cellulitis, Post-operative complication Referrals: Maru MCCANN,Danitza Leyva (PCP/Family) Departure Forms: Customer Survey General Discharge Information Observation Note Spoke With: Nishant MCCANN,[place] Day Physician Advisor Notified: LAUREN CAMPBELL DO Place Patient In: Non-ED OBS Care Area Rationale for Observation: My rational for observation is as follows serial lab exam medication adjustment IV analgesia physical therapy orthopedics management continuing care discharge planning. Critical Care Note Critical Care Note Critical Care Time: non-applicable ED Attending Observation Initial Observation Note: I have seen and personally examined JOSUÉ HEATON on 02/27/18 at 0023. I agree with the current emergency department documentation. The disposition (admission or discharge) is uncertain at this time, she needs a period of observation for the following reason(s): The ED Nurse caring for this patient has been personally informed as to what the patient is being observed for.
--- NOTE | 2018-02-26 23:11 | History & Physical Pre-Op ---
General Information and HPI MD Statement: I have seen and personally examined JOSUÉ HEATON and documented this H&P. The patient is a 57 year old F who presented with a patient stated chief complaint of [L knee erythema]. Source of Information: patient, old records Exam Limitations: no limitations History of Present Illness: This is a 57-year-old female 3 days status post left total knee arthroplasty secondary to primary left knee osteoarthritis, performed by Dr. Faustin which went without complications. She was discharged to a skilled nurse facility earlier today and then transferred to [place] emergency room due to concerns of erythema about her wound. At the request of the on-call orthopedic surgeon Dr. Dillard, the patient was transferred to our facility for reevaluation so she could be under the care of her orthopedic surgeons. She is currently on Eliquis and had mild bleeding postoperatively at the inferior aspect of her wound, likely secondary to Eliquis. Other than this, her postoperative course was uneventful, she had no fever or flulike illness and she progressed as expected being discharged on postop day #3. Patient states that when she got to her nursing facility, her leg suddenly became more painful, she felt as though she "had a fever in her leg", it was hot to touch and red at the medial proximal thigh region extending down to the knee. She felt as though she may have a fever as well. She was transferred to the [facility] emergency department and was evaluated by the emergency room staff there. They sent her records with her to our facility. I have reviewed them. Her T-max was 100.2, lactic acid was 1.2, white blood cell count 8.7, hemoglobin 9.7, hematocrit 29.9, platelets 198, 67% neutrophil count, CRP of 17, urinalysis was negative, blood cultures 2 were obtained and results are pending , ultrasound of the left lower extremity was performed and no DVT was noted. Allergies/Medications Allergies: Coded Allergies: perfume (Severe, anaphylaxis 02/23/18) Sulfa (Sulfonamide Antibiotics) (Intermediate, rash 02/23/18) latex (HIVES 02/12/18) oxytocin (From PITOCIN) (ALLERGY TESTED POSITIVE 02/12/18) Home Med list Apixaban (Eliquis) 2.5 MG TABLET 1 TAB PO BID BLOOD THINNER Azelastine/Fluticasone (Dymista Nasal [place]) 137 MCG-50 MCG/SPRAY SPRAY.PUMP 1 SPRAY NASB BID ALLERGIES (Reported) Chlorthalidone 25 MG TABLET 1 TAB PO DAILY BP (Reported) Docusate Sodium 100 MG CAPSULE 1 TAB PO BID PRN CONSTIPATION Fluticasone/Vilanterol (Breo Ellipta 100-25 Mcg INH) (Unknown Strength) BLST.W.DEV (Unknown Dose) INH BID ASTHMA (Reported) Hydromorphone HCl 2 MG TABLET 1-2 TAB PO Q3P PRN PAIN SCALE 4-6 (MODERATE) Levocetirizine Dihydrochloride 5 MG TABLET 1 TAB PO QPM ALLERGIES (Reported) Methocarbamol (Robaxin) 500 MG TABLET 1 TAB PO TIDPRN PRN SPASMS Pantoprazole Sodium 40 MG TABLET.DR 1 TAB PO DAILY GI (Reported) Polyethylene Glycol 3350 (Miralax) 17 GRAM/DOSE POWDER 1 TAB PO DAILY NEEDED PRN NO BM IN TWO DAYS Sumatriptan Succinate (Imitrex) 50 MG TABLET 1 TAB PO AD PRN MIGRAINE DO NOT TAKE MORE THAN TWO TABLETS IN 24 HOURS Past History Medical History Neurological: NONE EENT: allergies Cardiovascular: hypertension, hyperlipidemia Respiratory: asthma Gastrointestinal: NONE Hepatic: NONE Renal: NONE Musculoskeletal: NONE Psychiatric: NONE Endocrine: NONE Blood Disorders: NONE Cancer(s): NONE 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 Review of Systems Review of Systems: Review of systems: See HPI, all other systems negative. Constitutional: See HPI HEENT: No visual changes no sore throat no congestion Cardiovascular: No chest pain ,palpitation , orthopnea or ankle swelling Skin: No jaundice no rashes Respiratory: No dyspnea cough sputum or hemoptysis GI: No nausea no vomiting : No dysuria no hematuria Musclulo skeletal: Left knee pain, see HPI Neurologic: No numbness no confusion Psych: No stress anxiety or depression,. Heme/endocrine: No bruising no bleeding no polyuria or polydipsia Immunology: No splenectomy or history of AIDS Exam & Diagnostic Data Last 24 Hrs of Vital Signs/I&O Vital Signs Date Time Temp Pulse Resp B/P B/P Pulse O2 O2 Flow FiO2 Mean Ox Delivery Rate 02/26 2301 98.2 69 18 111/55 98 Room Air Physical Exam: Well-developed well-nourished no apparent distress. HEENT: Atraumatic, extraocular motion intact Neck: Supple, no lymphadenopathy Respiratory: No respiratory distress Extremities: No edema LEFT lower extremity dressing in place, Incision line is clean dry and intact with minimal bloody drainage inferior aspect of the incision. There is moderate swelling of the entire left lower extremity when compared bilaterally. There is significant warmth and erythema to the medial knee region that extends to the proximal thigh and anterior thigh. It is tender to touch. There is no crepitus. Moderate joint effusion Range of motion is 0-45. With pain Neurovascularly intact distally Bilateral calves are supple, nontender. Neuro: Alert and oriented x3 Psych: Mood affect normal, normal memory normal judgment. Skin: Warm and dry, no rash on exposed skin Assessment/Plan Assessment/Plan: 57-year-old female 3 days status post left total knee arthroplasty presents with temperature of 100.2, worsening pain in the left lower extremity with increased swelling and erythema most suggestive of cellulitis of the postoperative wound. Patient will be placed in observation for continued monitoring, we will hold off on antibiotics until orthopedic surgeon is able to evaluate her first thing in the morning. Blood cultures were obtained at [facility]. We will repeat her white blood cell count in the morning as well as her CRP to trend this (CRP at [facility] was 17). Appearance is more likely of a cellulitis then it is a postoperative joint infection and we will hold off on performing and left knee aspiration at this time. We will continue the Eliquis for DVT prophylaxis. Pain medication as needed. Left lower extremity should be elevated, she may get out of bed, weight-bear as tolerated and continue to work on knee range of motion to tolerance. Dw Dr Dillard As Ranked By This Provider Problem List: 1. Postoperative cellulitis of surgical wound
--- NOTE | 2018-02-26 23:44 | Admission Core Measures ---
Acute Coronary Syndrome (CM) ACS Core Measures Acute Coronary Syndrome Diagnosis No Congestive Heart Failure (NEW) CHF Core Measures Congestive Heart Failure Diagnosis No Cerebrovascular Accident CVA Core Measures CVA/TIA Diagnosis No Venous Thromboembolism VTE Core Ozzy (View Protocol) VTE Risk Factors Age>40 No Mechanical VTE Prophylaxis d/t N/A MechProphylax Ordered No VTE Pharm Prophylaxis d/t NA PharmProphylax ordered Problem List As ranked by this Provider includes Assessment & Plan 1. Postoperative cellulitis of surgical wound HOME MEDS Home Med List Apixaban (Eliquis) 2.5 MG TABLET 1 TAB PO BID BLOOD THINNER Azelastine/Fluticasone (Dymista Nasal [place]) 137 MCG-50 MCG/SPRAY SPRAY.PUMP 1 SPRAY NASB BID ALLERGIES (Reported) Chlorthalidone 25 MG TABLET 1 TAB PO DAILY BP (Reported) Docusate Sodium 100 MG CAPSULE 1 TAB PO BID PRN CONSTIPATION Fluticasone/Vilanterol (Breo Ellipta 100-25 Mcg INH) (Unknown Strength) BLST.W.DEV (Unknown Dose) INH BID ASTHMA (Reported) Hydromorphone HCl 2 MG TABLET 1-2 TAB PO Q3P PRN PAIN SCALE 4-6 (MODERATE) Levocetirizine Dihydrochloride 5 MG TABLET 1 TAB PO QPM ALLERGIES (Reported) Methocarbamol (Robaxin) 500 MG TABLET 1 TAB PO TIDPRN PRN SPASMS Pantoprazole Sodium 40 MG TABLET.DR 1 TAB PO DAILY GI (Reported) Polyethylene Glycol 3350 (Miralax) 17 GRAM/DOSE POWDER 1 TAB PO DAILY NEEDED PRN NO BM IN TWO DAYS Sumatriptan Succinate (Imitrex) 50 MG TABLET 1 TAB PO AD PRN MIGRAINE
[2018-02-27 00:21] VITALS: BP 122/74
[2018-02-27 06:57] VITALS: BP 120/70
[2018-02-27 07:43] LABS: ABSOLUTE BASOPHIL COUNT 0 /CUMM (0.0-0.2); ABSOLUTE EOSINOPHIL COUNT 0.4 /CUMM (0.0-0.7); ABSOLUTE GRANULOCYTE CT 3.9 /CUMM (1.4-6.5); ABSOLUTE LYMPH COUNT 2.1 /CUMM (1.2-3.4); ABSOLUTE MONOCYTE COUNT 0.5 /CUMM (0.10-0.60); BASOPHIL % 0.4 % (0.0-2.0); HEMATOCRIT 25.5 % (37-47); MEAN CORPUSCULAR HGB 30.3 PG (27.0-31.0); MEAN CORPUSCULAR HGB CONC 34.3 G/DL (33.0-37.0); MEAN CORPUSCULAR VOLUME 88.3 FL (81.0-99.0); MEAN PLATELET VOLUME 8.8 FL (7.4-10.4); PLATELET COUNT 182 /CUMM (130-400); RBC DISTRIBUTION WIDTH 13.7 % (11.5-14.5); RED BLOOD CELL CT 2.88 /CUMM (4.20-5.40); WHITE BLOOD CELL COUNT 6.9 /CUMM (4.8-10.8)
--- NOTE | 2018-02-27 09:39 | PN- Orthopedic ---
See Addendum Subjective Subjective: Reports pain uncontrolled "my entire left leg". She does not want morphine for pain control. Denies shortness of breath. No chest pains. No dizziness. Awaiting attending opinion. Objective Vital Signs and I&Os Vital Signs Date Time Temp Pulse Resp B/P B/P Pulse O2 O2 Flow FiO2 Mean Ox Delivery Rate 02/27 0657 98.4 60 16 120/70 98 Room Air 02/27 0021 98.2 58 18 122/74 98 Room Air 02/26 2346 Room Air 02/26 2345 98.0 70 18 113/60 98 Room Air 02/26 2301 98.2 69 18 111/55 98 Room Air Intake & Output 02/27 1600 02/27 0000 02/26 1600 02/26 0000 Intake Total 200 250 100 Output Total Balance 200 250 100 Intake, IV 10 100 Intake, Oral 200 240 Patient 228 lb Weight Physical Exam: General - alert & oriented x 3. uncomfortable. no acute distress. Lungs - clear bilaterally. no w/r/r. Cardiac - s1s2. reg. Abdomen - soft. nontender. Extremities - warm bilaterally. left leg swollen, hot to touch, tender. ecchymoses appreciated along medial knee/thigh. knee incision well approximated with steri strips. no exudates appreciated. nvi. Current Medications: Current Medications Sig/Mona Start time Last Medication Dose Route Stop Time Status Admin Acetaminophen 1,000 MG Q6H 02/27 0945 UNVr N/A 1 UNIT IV 02/28 0359 Acetaminophen 650 MG Q6P PRN 02/26 2345 DC PO Acetaminophen 0 .STK-MED ONE 02/26 2314 DC IV Acetaminophen 1,000 MG ONCE ONE 02/26 2300 DC 02/26 IV 02/26 2301 2313 Apixaban 2.5 MG BID 02/27 900 AC 02/27 PO 0856 Budesonide/ 2 PUF BID 02/27 900 AC 02/27 Formoterol Fumarate INH 0856 Chlorthalidone 25 MG DAILY 02/27 900 AC 02/27 PO 0856 Diphenhydramine HCl 25 MG .STK-MED ONE 02/27 0031 DC PO 02/27 0032 Diphenhydramine HCl 25 MG Q4P PRN 02/26 2345 AC 02/27 PO 0910 Docusate Sodium 100 MG BID PRN 02/26 2345 AC PO Hydromorphone HCl 2 MG Q3P PRN 02/26 2345 AC PO Hydromorphone HCl 2 MG Q3P PRN 02/26 2345 AC 02/27 PO 609 Methocarbamol 500 MG TIDPRN PRN 02/26 2345 AC 02/27 PO 0101 Morphine Sulfate 4 MG Q2P PRN 02/26 2345 AC IV Morphine Sulfate 0 .STK-MED ONE 02/26 2315 DC .ROUTE Morphine Sulfate 4 MG ONCE ONE 02/26 2300 DC 02/26 IV 02/26 2301 231 Omeprazole 40 MG DAILY AC 02/27 700 AC 02/27 PO 608 Ondansetron HCl 4 MG Q6P PRN 02/26 2345 AC IV Results Last 48 Hours of Labs: Laboratory Tests 02/28 656 Chemistry C-Reactive Prot, Quant (<1.0 mg/dL) > 9.0 H Hematology CBC w Diff NO MAN DIFF REQ WBC (4.8 - 10.8 /CUMM) 6.9 RBC (4.20 - 5.40 /CUMM) 2.88 L Hgb (12.0 - 16.0 G/DL) 8.7 L Hct (37 - 47 %) 25.5 L MCV (81.0 - 99.0 FL) 88.3 MCH (27.0 - 31.0 PG) 30.3 MCHC (33.0 - 37.0 G/DL) 34.3 RDW (11.5 - 14.5 %) 13.7 Plt Count (130 - 400 /CUMM) 182 MPV (7.4 - 10.4 FL) 8.8 Gran % (42.2 - 75.2 %) 56.0 Lymphocytes % (20.5 - 51.1 %) 30.6 Monocytes % (1.7 - 9.3 %) 7.0 Eosinophils % (0 - 5 %) 6.0 H Basophils % (0.0 - 2.0 %) 0.4 Absolute Granulocytes (1.4 - 6.5 /CUMM) 3.9 Absolute Lymphocytes (1.2 - 3.4 /CUMM) 2.1 Absolute Monocytes (0.10 - 0.60 /CUMM) 0.5 Absolute Eosinophils (0.0 - 0.7 /CUMM) 0.4 Absolute Basophils (0.0 - 0.2 /CUMM) 0 Assessment/Plan Assessment/Plan This 57-year-old female place in observation status overnight 3 days s/p left total knee arthroplasty. who presented with temperature of 100.2, worsening pain in the left lower extremity with increased swelling and erythema, ?cellulitis tolerating regular diet dilaudid / robaxin / tylenol prn pain colace BID ?continue eliquis bid f/u labs ?re-consult PT awaiting for plan Core Measures Venous Thromboembolism VTE Risk Factors Age>40 No Mechanical VTE Prophylaxis d/t N/A MechProphylax Ordered No VTE Pharm Prophylaxis d/t NA PharmProphylax ordered
--- NOTE | 2018-02-27 13:06 | PN- Orthopedic ---
Surgical Brief Attending Note Brief Attending Note: This patient was readmitted yesterday evening after she was evaluated at [facility] for left leg pain and swelling. She had a ultrasound done which was negative for DVT. The [facility] PA working in the emergency room stated that they were uncomfortable with sending her back to rehabilitation Center where she was transferred to after the hospitalization [facility]. Therefore patient was transferred here yesterday evening. Patient complains of left leg pain and swelling. She is status post total knee arthroplasty 4 days ago. On examination, patient was found lying in bed. Patient has a moderate hemarthrosis of her left knee. The incision is clean and dry. The leg is warm to touch consistent with her recent surgery.. She has some diffuse ecchymosis in her calf and thigh. Neuro exam was benign distally. Patient lacks about 10 of full extension in bed. She is reluctant to bend her knee but can bend to about 60. Patient is 4 days status post total knee arthroplasty with increased pain. I feel that she has developed a hemarthrosis which is most likely due to the anticoagulation, Eliquis. This medication has been discontinued. We will substitute the anticoagulation with aspirin 325 mg twice a day. This will also provide some anti-inflammatory effect which should be helpful. Previously, we could not do anti-inflammatory due to the anticoagulation but also that she was allergic to sulfa and therefore could not take Celebrex. I do feel she would benefit from an added anti-inflammatory short-term. A order for Motrin 800 mg 3 times a day with meals was initiated. This should help fairly quickly. Ice to the knee. Patient should continue with the normal total knee arthroplasty protocol with physical therapy. She should be out of bed and mobilizing. Pain medication has already been written for. Patient has had some issues with different medications in the past due to multiple allergies but I feel that she has benefited from certain pain medications including Dilaudid. This will be continued. The IV morphine will be discontinued. Patient needs to be out of bed with physical therapy and ambulating. There is no evidence of any early infection based on my examination. All findings are consistent with her postop total knee arthroplasty within the past 4 days as well as the increased ecchymosis due to the anticoagulation. Patient will be able to go back to rehabilitation the sooner she is more comfortable and safe with ambulation. I spoke to the PA concerning this and I discussed this with the patient.
[2018-02-27 14:00] VITALS: BP 120/82
[2018-02-27 15:04] VITALS: BP 118/70
[2018-02-27 22:29] VITALS: BP 120/60
[2018-02-28 06:20] VITALS: BP 120/72
--- NOTE | 2018-02-28 08:28 | PN- Orthopedic ---
See Addendum Subjective Subjective: feeling "horrible", wants medicine to help her swelling in leg, worked with pt yesterday, says she didn't do well. "can't go home with my leg like this". c/o significant pain in leg. denies sob/cp/n/v, susan diet. Objective Vital Signs and I&Os Vital Signs Date Time Temp Pulse Resp B/P B/P Pulse O2 O2 Flow FiO2 Mean Ox Delivery Rate 02/28 0620 98.2 75 18 120/72 96 Room Air 02/27 2229 98.4 60 20 120/60 95 /08 1504 98.9 69 18 118/70 93 /08 1400 98.6 78 16 120/82 99 Room Air 02/27 1215 Room Air Intake & Output 02/28 1600 02/28 0800 02/28 0000 / 1600 02/27 0800 / 0000 Intake Total 798 618 1093 250 100 Output Total Balance 841 677 6590 250 100 Intake, IV 150 200 10 100 Intake, Oral 328 573 0766 240 Patient 228 lb Weight Physical Exam: gen- nad card-s1s2 rrr pulm- ctab ext- lle with diffuse ecchymosis thigh to calf, ttp, though soft throughout,. incision w steris- cdi, no drainage. no erythema. calves soft nt bl. palp dp bl. gross sensation/ dorsi/plantarflexion intact bl. Results Last 48 Hours of Labs: Laboratory Tests 02/27 0656 Chemistry C-Reactive Prot, Quant (<1.0 mg/dL) > 9.0 H Hematology CBC w Diff NO MAN DIFF REQ WBC (4.8 - 10.8 /CUMM) 6.9 RBC (4.20 - 5.40 /CUMM) 2.88 L Hgb (12.0 - 16.0 G/DL) 8.7 L Hct (37 - 47 %) 25.5 L MCV (81.0 - 99.0 FL) 88.3 MCH (27.0 - 31.0 PG) 30.3 MCHC (33.0 - 37.0 G/DL) 34.3 RDW (11.5 - 14.5 %) 13.7 Plt Count (130 - 400 /CUMM) 182 MPV (7.4 - 10.4 FL) 8.8 Gran % (42.2 - 75.2 %) 56.0 Lymphocytes % (20.5 - 51.1 %) 30.6 Monocytes % (1.7 - 9.3 %) 7.0 Eosinophils % (0 - 5 %) 6.0 H Basophils % (0.0 - 2.0 %) 0.4 Absolute Granulocytes (1.4 - 6.5 /CUMM) 3.9 Absolute Lymphocytes (1.2 - 3.4 /CUMM) 2.1 Absolute Monocytes (0.10 - 0.60 /CUMM) 0.5 Absolute Eosinophils (0.0 - 0.7 /CUMM) 0.4 Absolute Basophils (0.0 - 0.2 /CUMM) 0 Assessment/Plan Assessment/Plan A- HD2 with postop pain r/t hemathrosis, now on ASA instead of eliquis, sp L TKR 02/23, stable. P- check cbc elevate leg prn pain meds oob, wbat, pt asa bid dc planning will dw attending Core Measures Venous Thromboembolism VTE Risk Factors Age>40 No Mechanical VTE Prophylaxis d/t N/A MechProphylax Ordered No VTE Pharm Prophylaxis d/t NA PharmProphylax ordered
[2018-02-28 09:48] LABS: ABSOLUTE BASOPHIL COUNT 0 /CUMM (0.0-0.2); ABSOLUTE EOSINOPHIL COUNT 0.5 /CUMM (0.0-0.7); ABSOLUTE GRANULOCYTE CT 4.4 /CUMM (1.4-6.5); ABSOLUTE LYMPH COUNT 2.1 /CUMM (1.2-3.4); ABSOLUTE MONOCYTE COUNT 0.5 /CUMM (0.10-0.60); BASOPHIL % 0.4 % (0.0-2.0); EOSINOPHIL % 6.5 % (0-5); MEAN CORPUSCULAR HGB CONC 33.5 G/DL (33.0-37.0); MEAN CORPUSCULAR VOLUME 89.6 FL (81.0-99.0); MEAN PLATELET VOLUME 8.6 FL (7.4-10.4); PLATELET COUNT 239 /CUMM (130-400); RBC DISTRIBUTION WIDTH 13.8 % (11.5-14.5); RED BLOOD CELL CT 3.01 /CUMM (4.20-5.40); WHITE BLOOD CELL COUNT 7.5 /CUMM (4.8-10.8)
[2018-02-28 10:54] VITALS: BP 134/86
[2018-02-28 14:19] VITALS: BP 120/80
[2018-02-28] MEDS ORDERED: ASPIRIN EC325 M2 PO (17:27)
--- NOTE | 2018-02-28 17:31 | Patient Discharge Instructions ---
Discharge Instructions General Discharge Information You were seen/treated for: Hemarthrosis left knee sp left total knee replacement Watch for these problems: worsening pain, worsening swelling, inability to bear weight, numbness, fever> 101 No bath, but you may shower: Yes Special Instructions: Call to be seen in 1 week. ice to affected area. elevate left leg when at rest Diet Continue normal diet: Yes Activity Activity Limited to: Weight bear as tolerated Acute Coronary Syndrome Inclusion Criteria At DC or during hospital stay patient has or had the following: ACS DIAGNOSIS No Discharge Core Measures Meds if any: Prescribed or Continued at Discharge Meds if any: NOT Prescribed or Continued at Discharge Congestive Heart Failure Inclusion Criteria At DC or during hospital stay patient has or had the following: CHF DIAGNOSIS No Discharge Core Measures Meds if any: Prescribed or Continued at Discharge Meds if any: NOT Prescribed or Continued at Discharge Cerebrovascular accident Inclusion Criteria At DC or during hospital stay patient has or had the following: CVA/TIA Diagnosis No Discharge Core Measures Meds if any: Prescribed or Continued at Discharge Meds if any: NOT Prescribed or Continued at Discharge Venous thromboembolism Inclusion Criteria VTE Diagnosis No VTE Type NONE VTE Confirmed by (Test) NONE Discharge Core Measures - Per Current guidelines, there needs to be overlap - treatment for the first 5 days of Warfarin therapy. - If discharged on Warfarin prior to 5 days of - overlap therapy, the patient will need to be - assessed for post discharge needs including - *Post discharge parental anticoagulation - *Warfarin and/or parental anticoagulation education - *Follow up date to check INR post discharge At least 5 days overlap therapy as Inpatient No Meds if any: Prescribed or Continued at Discharge Note: Overlap Therapy is Warfarin and Anticoagulant Meds if any: NOT Prescribed or Continued at Discharge
--- NOTE | 2018-02-28 17:35 | Surg Short-stay <48hrs Dis Sum ---
Visit Information Visit Dates Admission Date: 02/26/18 Discharge Date: 03/01/18 Surgical Short Stay DC Summary Admission Diagnosis: hemarthrosis left knee Final Diagnosis: same Procedure(s): none Summary/Significant Findings: Brought into hospital on 02/26/18 for pain control and anticoagulation change related to hemarthrosis of left knee. Pt s/p total knee replacement 02/23/18. Concern of swollen red leg at STR, and pt sent for evaluation. DVT r/o via imaging. Anticoagulation changed to ASA 325mg BID and eliquis was discontinued. Pain controlled with PO meds as needed. Pt deemed stable for DC from hospital. Condition at Discharge: stable Discharge Disposition: SNF Discharge instructions provided to patient/family: Yes Post discharge follow-up plan: Call to be seen in 1 week
[2018-02-28 21:49] VITALS: BP 132/70
[2018-03-01 06:17] VITALS: BP 114/63
--- NOTE | 2018-03-01 08:20 | PN- Orthopedic ---
Subjective Subjective: No acute events overnight. Reports she feels somewhat better this morning, but still reports moderate pain in her leg. States, "i would rather go home today if possible" when asked how she feels about rehab versus home with services. Continues to report that "my leg feels heavy" and that she has multiple stairs at her home that she is afraid of doing. Discussed with pt that we will see how she does with therapy today and make a decision with attending. Objective Vital Signs and I&Os Vital Signs Date Time Temp Pulse Resp B/P B/P Pulse O2 O2 Flow FiO2 Mean Ox Delivery Rate 03/01 617 98.6 67 20 114/63 97 Room Air 02/28 2149 98.5 80 18 132/70 95 02/28 1419 97.6 78 20 120/80 100 02/28 1054 98.1 74 18 134/86 96 Room Air Intake & Output 03/01 1600 03/01 0800 03/01 0000 02/28 1600 02/28 0800 02/28 0000 Intake Total 200 120 500 350 680 Output Total Balance 200 120 500 350 680 Intake, IV 20 150 200 Intake, Oral 200 120 480 200 480 Physical Exam: gen- nad card-s1s2 rrr pulm- ctab ext- some ecchymosis in left lower extremity, soft throughout, surgical wound is healing well and well approximated with seri-strips in place, no drainage or erythema, no heat, calves are soft NT, montor strenght intact Current Medications: Current Medications Sig/Mona Start time Last Medication Dose Route Stop Time Status Admin Aspirin Buffered 325 MG BID 02/27 2100 AC 02/28 PO 2043 Budesonide/ 2 PUF BID 02/27 900 AC 02/28 Formoterol Fumarate INH 4 Chlorthalidone 25 MG DAILY 02/27 900 AC 02/28 PO 1042 Diphenhydramine HCl 25 MG .STK-MED ONE 02/28 1030 DC PO 02/28 1031 Diphenhydramine HCl 25 MG Q4P PRN 02/26 2345 AC 02/28 PO 1042 Docusate Sodium 100 MG .STK-MED ONE 02/28 1038 DC PO 02/28 1039 Docusate Sodium 100 MG BID PRN 02/26 2345 AC 02/28 PO 1042 Hydromorphone HCl 4 MG Q3P PRN 02/27 1300 AC 03/01 PO 0611 Hydromorphone HCl 2 MG Q3P PRN 02/26 2345 AC PO Ibuprofen 800 MG TID 02/27 1445 AC 02/28 PO 204 Methocarbamol 500 MG TIDPRN PRN 02/26 2345 AC 02/28 PO 1240 Omeprazole 40 MG DAILY AC 02/27 1000 AC 02/27 PO 1053 Omeprazole 40 MG DAILY AC 02/27 0700 AC 03/01 PO 0612 Ondansetron HCl 4 MG Q6P PRN 02/26 2345 AC IV Zolpidem Tartrate 10 MG AT BEDTIME PRN 02/28 2015 AC 02/28 PO 204 Results Last 48 Hours of Labs: Laboratory Tests 02/28 910 Hematology CBC w Diff NO MAN DIFF REQ WBC (4.8 - 10.8 /CUMM) 7.5 RBC (4.20 - 5.40 /CUMM) 3.01 L Hgb (12.0 - 16.0 G/DL) 9.0 L Hct (37 - 47 %) 27.0 L MCV (81.0 - 99.0 FL) 89.6 MCH (27.0 - 31.0 PG) 30.0 MCHC (33.0 - 37.0 G/DL) 33.5 RDW (11.5 - 14.5 %) 13.8 Plt Count (130 - 400 /CUMM) 239 MPV (7.4 - 10.4 FL) 8.6 Gran % (42.2 - 75.2 %) 59.0 Lymphocytes % (20.5 - 51.1 %) 27.5 Monocytes % (1.7 - 9.3 %) 6.6 Eosinophils % (0 - 5 %) 6.5 H Basophils % (0.0 - 2.0 %) 0.4 Absolute Granulocytes (1.4 - 6.5 /CUMM) 4.4 Absolute Lymphocytes (1.2 - 3.4 /CUMM) 2.1 Absolute Monocytes (0.10 - 0.60 /CUMM) 0.5 Absolute Eosinophils (0.0 - 0.7 /CUMM) 0.5 Absolute Basophils (0.0 - 0.2 /CUMM) 0 Assessment/Plan Assessment/Plan A- HD3 with postop pain r/t hemathrosis, now on ASA instead of eliquis, sp L TKR 02/23, stable. P- elevate leg, ice PRN prn pain meds oob, wbat, pt asa bid dc planning - home vs rehab? Will see how patient does with PT today will dw attending Core Measures Venous Thromboembolism VTE Risk Factors Age>40 No Mechanical VTE Prophylaxis d/t N/A MechProphylax Ordered No VTE Pharm Prophylaxis d/t NA PharmProphylax ordered
[2018-03-01 14:16] VITALS: BP 120/80
[2018-03-01] MEDS ORDERED: HYDROMORPHONE HC2 M1 PO (14:53)
[2018-03-01] MEDS ORDERED: ROBAXIN500 M1 PO (14:53)
[2018-03-01] MEDS ORDERED: ASPIRIN EC325 M2 PO (14:55)
[2018-03-01] MEDS ORDERED: DOCUSATE SODIU100 M3 PO (14:55)
--- NOTE | 2018-03-01 15:08 | Surgical Discharge Summary ---
Visit Information Visit Dates Admission Date: 02/26/18 Discharge Date: 03/01/18 History of Present Illness Chief Complaint: Brought into hospital on 02/26/18 for pain control and anticoagulation change related to hemarthrosis of left knee. Pt s/p total knee replacement 02/23/18. Concern of swollen red leg at STR, and pt sent for evaluation. 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 Spouse Services at Home: None What is Your Primary Language? Japanese Review of Systems: refer to [facility] Hospital Course Course Attending Physician: Elver Dillard MD Primary Care Physician: Danitza Mahoney MD Hospital Course: Brought into hospital on 02/26/18 for pain control and anticoagulation change related to hemarthrosis of left knee. Pt s/p total knee replacement 02/23/18. Concern of swollen red leg at STR, and pt sent for evaluation. DVT r/o via imaging. Anticoagulation changed to ASA 325mg BID and eliquis was discontinued. Pain controlled with PO meds as needed. Was seen by physical therpay who recommended patient be discharged home with PT service and rolling walker. Pt deemed stable for dc from hospital Allergies: Coded Allergies: perfume (Severe, anaphylaxis 02/23/18) Sulfa (Sulfonamide Antibiotics) (Intermediate, rash 02/23/18) latex (HIVES 02/12/18) oxytocin (From PITOCIN) (ALLERGY TESTED POSITIVE 02/12/18) Disposition Summary Disposition Principal Diagnosis: Left knee hemarthrosis Additional Diagnosis: s/p left knee replacement Discharge Disposition: home health services Discharge Instructions General Discharge Information Code Status: Full Code Patient's Diet: Regular Patient's Activity: Activity as tolerated using fall precautions Follow-Up Instructions/Appts: Follow up with surgeon in 1-2 weeks regarding recent hospitilization Medications at Discharge Discharge Medications: Continue taking these medications: Sumatriptan Succinate (Imitrex) 50 MG TABLET 1 Tablet ORAL As Directed as needed for MIGRAINE Qty = 9 Instructions: DO NOT TAKE MORE THAN TWO TABLETS IN 24 HOURS Comments: not given Chlorthalidone (Chlorthalidone) 25 MG TABLET 1 Tablet ORAL DAILY Qty = 30 Comments: Last Taken: 02/26/18 Time: 912am Fluticasone/Vilanterol (Breo Ellipta 100-25 Mcg INH) (Unknown Strength) BLST.W.DEV Unknown Dose Inhale through mouth TWICE DAILY Comments: not given Azelastine/Fluticasone (Dymista Nasal [place]) 137 MCG-50 MCG/SPRAY SPRAY.PUMP 1 [place] Both sides of nose TWICE DAILY Comments: not given Levocetirizine Dihydrochloride (Levocetirizine Dihydrochloride) 5 MG TABLET 1 Tablet ORAL Every night Qty = 30 Comments: not given Pantoprazole Sodium (Pantoprazole Sodium) 40 MG TABLET.DR 1 Tablet ORAL DAILY Qty = 30 Comments: not given Docusate Sodium (Docusate Sodium) 100 MG CAPSULE 1 Tablet ORAL TWICE DAILY as needed for CONSTIPATION Qty = 30 Comments: Last Taken: 02/25/18 Time: 942am Polyethylene Glycol 3350 (Miralax) 17 GRAM/DOSE POWDER 1 Tablet ORAL DAILY NEEDED as needed for NO BM IN TWO DAYS Qty = 30 Comments: Last Taken: 02/25/18 Time: 942am Start taking the following new medications: Aspirin (Ecotrin*) 325 MG TABLET.DR 325 Milligram ORAL TWICE DAILY Qty = 60 No Refills Instructions: . Docusate Sodium (Docusate Sodium) 100 MG CAPSULE 100 Milligram ORAL TWICE DAILY as needed for CONSTIPATION Qty = 30 No Refills Instructions: Stop when having regular Bowel movements The following medications have been changed: Old: Hydromorphone HCl (Hydromorphone HCl) 2 MG TABLET 1-2 Tablet ORAL EVERY 3 HOURS NEEDED as needed for PAIN SCALE 4-6 ( MODERATE) Qty = 30 New: Hydromorphone HCl (Hydromorphone HCl) 2 MG TABLET 1-2 Tablet ORAL EVERY 3 HOURS NEEDED as needed for PAIN SCALE 7-10 ( SEVERE) Qty = 30 Instructions: . Old: Methocarbamol (Robaxin) 500 MG TABLET 1 Tablet ORAL THREE TIMES A DAY NEEDED as needed for SPASMS Qty = 30 New: Methocarbamol (Robaxin) 500 MG TABLET 1 Tablet ORAL THREE TIMES A DAY NEEDED as needed for SPASMS Qty = 30 Instructions: .
== END 2018-03-01 17:25 | disposition home health service (06) ==
LOC: ERH 22:49 → 2NA 22:53 → ERHI 22:53 → 2NA 22:53 → ENRESERV 23:17 → 2NA 02-27 00:08 → ENTRNSPT 03-01 17:14 → 2NA 03-01 17:25 → CMPTRNSPT 03-01 17:30
PROVIDERS: Physician Assistant Surgical
DX: G89.18 Other acute postprocedural pain (principal); L03.116 Cellulitis of left lower limb; M25.062 Hemarthrosis, left knee; I10 Essential (primary) hypertension; E78.5 Hyperlipidemia, unspecified
CPT/HCPCS: 1255; 36415; 36592; 96374; 96375; 97110-GP; 97116-GO; 97116-GP; 97161-GP; 97530-GO; G0378; J0131; J3490